=== PATIENT | male | born 1965 | race Caucasian/White ===

== ENCOUNTER 2024-06-26 05:55 | Day surgery (SDC) | payer OTHER ==
[2024-06-20 11:17] VITALS: BP 144/95
[~2024-06-26] VITALS: Ht 177.8 cm; Wt 159.1 kg
[~2024-06-26 05:55] MED LIST: LOSARTAN POTASS50 MG PO
[2024-06-26 06:04] VITALS: BP 123/64
[2024-06-26] MEDS ORDERED: ROSUVASTATIN CA20 MG PO (06:06)
[2024-06-26] MEDS ORDERED: LOSARTAN-HCTZ1 EAC2 PO (06:06)
[2024-06-26] MEDS ORDERED: LIDOCAINE HCL 1% 5 ML SDV INJ ONE (07:00)
[2024-06-26] MEDS ORDERED: IBLOOD GLUCOSE TEST STRIP 1 EA TEST VI PRN (07:00)
[2024-06-26] MEDS ORDERED: LACTATED RINGER'S 1,000 ML IV SCH (07:00)
[2024-06-26] MEDS ORDERED: LIDOCAINE HCL 2% 5 ML SDV ONE (07:15)
[2024-06-26] MEDS ORDERED: propofoL 200 MG/20 ML VIAL ONE ×2 (07:15→07:52)
[2024-06-26] MEDS ORDERED: fentaNYL citrate 100 MCG/2 ML VIAL ONE (07:42)
[2024-06-26] MEDS ORDERED: ePHEDrine sulfate 50 MG/ML AMP ONE (07:59)
[2024-06-26 09:05] VITALS: BP 129/74
--- NOTE | 2024-06-26 11:14 | OR ---
[facility] [address] [place], [place] [address] Signed DATE OF OPERATION: 06/26/2024 SURGEON: Aruna Joiner MD PREOPERATIVE DIAGNOSIS: Maternal grandfather with colon cancer in his 60s. POSTOPERATIVE DIAGNOSES: 1. 5 mm polyp at 7 cm in the rectum. 2. 4 mm polyps x3 at 8 cm in the rectum. 3. 4 mm polyp at 10 cm in the rectum. 4. 12 mm pedunculated polyp at 42 cm in left colon (clip, snare). 5. 4 mm polyp at 22 cm in sigmoid colon. 6. 6 mm polyp at 70 cm in the left colon. 7. 3 mm polyps x2 on ileocecal valve. 8. Large lobulated cecal mass (biopsy x2). 9. 6 mm polyp at distal hepatic flexure. 10. A large pedunculated mass at 85 cm in mid transverse colon (clip, tattoo). 11. 6 mm polyp at 26 cm in sigmoid colon (snare). 12. 7 mm pedunculated polyp at 23 cm in sigmoid colon (snare). 13. Minimal left-sided diverticulosis. PROCEDURE: Colonoscopy with snare polypectomy hot biopsy and application of clips x2. ESTIMATED BLOOD LOSS: Minimal. INDICATIONS: Malachi is a 59-year-old obese gentleman, asked to see me for his initial screening colonoscopy. He said he has no lower GI complaints. His maternal grandfather had colon cancer in his 60s. In the remote past, Dr. Garrett thought Malachi might have Crohn disease based on blood work and x-rays. He has never had a previous colonoscopy or upper endoscopy. In the office, I gave [facility] pamphlet on colonoscopy. We had reviewed the nature of the test. There is risk including, but not limited to gas bloating, crampy abdominal pain, bleeding, perforation requiring surgery, and missed diagnosis. We also reviewed the written instructions for the bowel prep line by line. He said he was up most of the night with a bowel prep. I think in the future he could start his bowel prep in the day and increase the polyethylene glycol from one-half gallon up to 3/4 or even one full gallon along with his Dulcolax tablets. He is a very Electronically Signed By: ARUNA JOINER MD 06/26/24 1114 PATIENT NAME: MALACHI TRIPATHI OPERATIVE REPORT DATE OF : 69 REPORT #: [id number] PHYSICIAN: ARUNA JOINER MD PCP: JENIFER ROJAS MD REPORT IS CONFIDENTIAL AND NOT TO BE RELEASED WITHOUT AUTHORIZATION [facility] [address] [place], [place] [address] Signed large man with a body mass index of 49 and he does smoke. He has very full heavy face, neck, chest and abdomen. Therefore, we asked for monitored anesthesia care with propofol infusion. That proved to be a pina decision as Malachi was frequently moving around and had to be redosed multiple times throughout the case. He understands an adult person has to take him home afterwards. He had expressed understanding wished to proceed. PROCEDURE IN DETAIL: Malachi was taken into the endoscopy suite and placed in the left lateral decubitus position. 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 A digital rectal exam was performed. He had no external hemorrhoids. He has good sphincter tone. There were no masses. He is a very large man I could barely touch the bottom of his prostate gland. It is becoming indurated. The adult colonoscope was introduced and advanced under direct visualization of the camera without difficulty. The above-mentioned polyps were removed mostly with the hot biopsy forceps. We did have to use the snare as indicated above. Overall, his prep was good. There were a couple areas of liquid stool, most of which I could suction out. We had finally made it to the cecum, he has a large multilobulated mass. There was no way that I can come out with snare without perforation. We took a couple biopsies on the edge of that area. We went back and he has a very large pedunculated mass at 85 cm, which we believe is in the mid transverse colon. We never could find a base of that mass. We went ahead and placed a tattoo x2 and placed a clip. We will go ahead and take an x-ray in our recovery room to help localize the mass. Although that is so large, it will on a CT scan. We took the biopsy of that mass, it clearly needs to come out surgically. We noticed that he does have some diverticula in his sigmoid colon. They are small in size, few in number and scattered about. Once in the rectum, the scope was retroflexed and he has no additional pathology noted above the anal canal. After this, the gas was suctioned out and the colonoscope removed. Overall, Malachi tolerated the procedure well. RECOMMENDATIONS: We will draw a CEA level here in our recovery room. He will have flat plate of his abdomen here in recovery room to look for the two clips. In due time, he needs a CT scan and then consideration of surgery. I will discuss this more in detail with Malachi in the office. He called for ride only. Aruna Joiner MD Electronically Signed By: ARUNA JOINRE MD 06/26/24 1114 PATIENT NAME: MALACHI TRIPATHI OPERATIVE REPORT DATE OF : 69 REPORT #: [id number] PHYSICIAN: ARUNA JOINER MD PCP: JENIFER ROJAS MD REPORT IS CONFIDENTIAL AND NOT TO BE RELEASED WITHOUT AUTHORIZATION [address] [place], [place] [address] Signed ALB/MODL /[id number] cc: JIM Carpio MD Copies: LEW JAY PA-C, ROBERT D DMD ~ Electronically Signed By: ARUNA JOINER MD 06/26/24 1114 PATIENT NAME: MALACHI TRIPATHI OPERATIVE REPORT DATE OF : 69 REPORT #: [id number] PHYSICIAN: ARUNA JOINER MD PCP: JENIFER ROJAS MD REPORT IS CONFIDENTIAL AND NOT TO BE RELEASED WITHOUT AUTHORIZATION
[2024-06-28 01:32] LABS: CARCINOEMBRYONIC ANTIGEN 1.3 ng/mL (<=3.8)
--- NOTE | 2024-07-03 13:08 | PATH ---
[facility] [address] [place], [place] [address] Signed SPECIMEN(S): A COLON POLYP AT 7 CM SPECIMEN(S): B COLON POLYP AT 8 CM SPECIMEN(S): C COLON POLYP AT 10 CM SPECIMEN(S): D COLON POLYP AT 22 CM SPECIMEN(S): E COLON POLYP AT 42 CM SPECIMEN(S): F COLON POLYP AT 70 CM SPECIMEN(S): G ILEOCECAL VALVE COLON POLYP SPECIMEN(S): H ILEOCECAL VALVE COLON BIOPSY SPECIMEN(S): I DISTAL HEPATIC FLEXURE COLON POLYP SPECIMEN(S): J COLON POLYP AT 26 CM SPECIMEN(S): K COLON POLYP AT 23 CM SPECIMEN SOURCE: A. COLON POLYP AT 7 CM B. COLON POLYP AT 8 CM C. COLON POLYP AT 10 CM D. COLON POLYP AT 22 CM E. COLON POLYP AT 42 CM F. COLON POLYP AT 70 CM G. ILEOCECAL VALVE COLON POLYP H. ILEOCECAL VALVE COLON BIOPSY I. DISTAL HEPATIC FLEXURE COLON POLYP J. COLON POLYP AT 26 CM K. COLON POLYP AT 23 CM [id number] CLINICAL HISTORY: Screening, potential Crohn's FINAL PATHOLOGIC DIAGNOSIS: A. Colon, polyp at 7 cm, biopsy: - Hyperplastic polyps (2 fragments). B. Colon, polyp at 8 cm, biopsy: - Hyperplastic polyps (3 fragments). - Colonic epithelium with a benign intramucosal lymphoid nodule, 1 fragment. C. Colon, polyp at 10 cm, biopsy: - No significant histopathology. - There is no evidence of neoplasia. D. Colon, polyp at 22 cm, biopsy: - Benign colonic mucosa with prominent intramucosal lymphoid aggregate. - There is no evidence of neoplasia. PATIENT NAME: VIRGIE TRIPATHI PATHOLOGY DATE OF : 69 REPORT #: [id number] PHYSICIAN: PETER PATHOLOGY PCP: JENIFER ROJAS MD REPORT IS CONFIDENTIAL AND NOT TO BE RELEASED WITHOUT AUTHORIZATION [facility] [address] [place], [place] [address] Signed E. Colon, polyp at 42 cm, biopsy: - Tubular adenoma. F. Colon, polyp at 70 cm, biopsy: - Hyperplastic polyp. G. Colon, ileocecal valve polyp, biopsy: - Benign colonic mucosa with prominent intramucosal lymphoid aggregates. - No evidence of neoplasia. H. Colon, ileocecal valve, biopsy: - Multiple fragments of tubular adenoma. I. Colon, distal hepatic flexure polyp, biopsy: - Tubular adenoma. J. Colon, polyp at 26 cm, biopsy: - Tubular adenoma. K. Colon, polyp at 23 cm, biopsy: - Hyperplastic polyp. COMMENT: A, B, F, K. There is no evidence of dysplasia or malignancy. C. The sections from the specimen are architecturally normal without crypt distortion. There is no acute or chronic inflammation. There are no abnormal infiltrates. There is no evidence of inflammatory, hyperplastic or adenomatous polyps. D. Sections of colonic tissue demonstrate a benign intramucosal lymphoid aggregate. Intramucosal lymphoid aggregates can sometimes appear as polyps endoscopically. They have no clinical significance. There is no evidence of dysplasia or malignancy. E, H, I, J. There is no evidence of high grade dysplasia or malignancy. G. Examination of sections from three different levels of the tissue block discloses the presence of benign intramucosal lymphoid aggregates. Intramucosal lymphoid aggregates can sometimes appear as polyps endoscopically. They have no clinical significance. There is no evidence of dysplasia or malignancy. K MICROSCOPIC EXAMINATION: Histologic sections of all submitted blocks are examined by light microscopy. These findings, together with the gross examination, support the pathologic diagnosis. GROSS DESCRIPTION: A. The specimen, labeled and designated "Sathya, colon polyp at 7 cm," is PATIENT NAME: VIRGIE TRIPATHI PATHOLOGY DATE OF : 69 REPORT #: [id number] PHYSICIAN: PETER ANTONY PCP: JENIFER ROJAS MD REPORT IS CONFIDENTIAL AND NOT TO BE RELEASED WITHOUT AUTHORIZATION [facility] [address] [place], [place] [address] Signed received in formalin and consists of 2 pieces of skinner-pink, soft tissue which measure 0.3 x 0.2 x 0.1 cm each. The specimen is filtered and submitted entirely in A1. Eosin is applied to the tissue prior to processing B. The specimen, labeled and designated "Sathya, colon polyp at 8 cm," is received in formalin and consists of 4 pieces of skinner-pink, soft tissue ranging from 0.2-0.4 cm in greatest dimension and aggregating 0.8 x 0.4 x 0.2 cm. The specimen is filtered and submitted entirely in B1. Eosin is applied to the tissue prior to processing C. The specimen, labeled and designated "Sathya, colon polyp at 10 cm," is received in formalin and consists of a 0.2 x 0.1 x 0.1 cm piece of skinner-pink, soft tissue. The specimen is filtered and submitted entirely in C1. Eosin is applied to the tissue prior to processing. D. The specimen, labeled and designated "Sathya, colon polyp at 22 cm," is received in formalin and consists of a 0.4 x 0.2 x 0.1 cm piece of skinner-pink, soft tissue. The specimen is filtered and submitted entirely in D1. E. The specimen, labeled and designated "[place], colon polyp at 42 cm," is received in formalin and consists of a 1.3 x 0.8 x 0.5 cm skinner-brown polyp with a discrete resection margin. The margin is inked in blue and the specimen is bisected. The specimen is submitted entirely in E1. F. The specimen, labeled and designated "Sathya, colon polyp at 70 cm," is received in formalin and consists of a 0.2 x 0.1 x 0.1 cm piece of skinner-pink, soft tissue. The specimen is filtered and submitted entirely in F1. Eosin is applied to the tissue prior to processing G. The specimen, labeled and designated "Sathya, ileocecal valve colon polyp," is received in formalin and consists of 4 pieces of skinner-pink, soft tissue ranging from 0.2-0.4 cm in greatest dimension, altogether aggregating 0.8 x 0.3 x 0.1 cm. The specimen is filtered and submitted entirely in G1. Eosin is applied to the tissue prior to processing. H. The specimen, labeled and designated "Sathya, ileocecal valve colon biopsy," is received in formalin and consists of 2 pieces of skinner-pink, soft tissue which measures 0.3 cm in greatest dimension each and aggregate 0.6 x 0.3 x 0.1 cm. The specimen is filtered and submitted entirely in H1. Eosin is applied to the tissue prior to processing. I. The specimen, labeled and designated "[place], distal hepatic flexure colon polyp," is received in formalin and consists of a 0.2 x 0.2 x 0.1 cm piece of skinner-pink, soft tissue. The specimen is filtered and submitted entirely in I1. Eosin is applied to the tissue prior to PATIENT NAME: VIRGIE TRIPATHI PATHOLOGY DATE OF : 69 REPORT #: [id number] PHYSICIAN: PETER PATHOLOGY PCP: JENIFER ROJAS MD REPORT IS CONFIDENTIAL AND NOT TO BE RELEASED WITHOUT AUTHORIZATION [facility] [address] [place], [place] [address] Signed processing. J. The specimen, labeled and designated "Sathya, colon polyp at 26 cm," is received in formalin and consists of is 0.7 x 0.5 x 0.4 cm skinner-red polyp. The specimen is inked at the margin and blue and bisected. The specimen is submitted entirely in J1. K. The specimen, labeled and designated "[place], colon polyp at 23 cm," is received in formalin and consists of a 1.7 x 1.0 x 0.7 cm, skinner-brown polyp with an attached stalk. The base of the stalk is inked in blue and the polyp is bisected. The specimen submitted entirely in K1. AM (under the direct supervision of a pathologist) The Gross Description was prepared using a voice recognition system. The report was reviewed for accuracy; however, sound-alike word errors, addition and/or deletions may occur. If there is any question about this report, please contact Client Services. ADDITIONAL NOTES: Immunohistochemical and/or in situ hybridization studies if performed in this case included appropriate positive controls that reacted as expected. This test was developed and its performance characteristics determined by [facility]. It has not been cleared or approved by the U.S. Food and Drug Administration. The FDA has determined that such clearance or approval is not necessary. This test is used for clinical purposes. It should not be regarded as investigational or for research. [facility] is certified under the Clinical Laboratory Improvement Amendments of 1988 (CLIA) as qualified to perform high complexity clinical laboratory testing. PERFORMING LABORATORY: Technical component was performed by [facility], [address] [place] [id number] (CLIA# [id number]). Professional interpretation was performed by [facility], [address] [place] [address] (CLIA#:[id number]). Diagnostician: Kevin Gunn MD Pathologist Electronically Signed 07/03/2024 Copies: PATIENT NAME: VIRGIE TRIPATHI PATHOLOGY DATE OF : 69 REPORT #: [id number] PHYSICIAN: PETER PATHOLOGY PCP: JENIFER ROJAS MD REPORT IS CONFIDENTIAL AND NOT TO BE RELEASED WITHOUT AUTHORIZATION [facility] [address] [place], [place] [address] Signed ~ PATIENT NAME: VIRGIE TRIPATHI PATHOLOGY DATE OF : 69 REPORT #: [id number] PHYSICIAN: PETER PATHOLOGY PCP: JENIFER ROJAS MD REPORT IS CONFIDENTIAL AND NOT TO BE RELEASED WITHOUT AUTHORIZATION
== END 2024-06-26 09:18 | disposition home or self-care (01) ==
LOC: DS 05:55
PROVIDERS: ATTEND Colon & Rectal Surgery
PROC: 0DBL8ZZ Excision of Transverse Colon, Via Natural or Artificial Opening Endoscopic (ICD-10-PCS; 2024-06-26)
PROC: 0DBN8ZZ Excision of Sigmoid Colon, Via Natural or Artificial Opening Endoscopic (ICD-10-PCS; 2024-06-26)
PROC: 0DBP8ZZ Excision of Rectum, Via Natural or Artificial Opening Endoscopic (ICD-10-PCS; 2024-06-26)
PROC: 0DBG8ZZ Excision of Left Large Intestine, Via Natural or Artificial Opening Endoscopic (ICD-10-PCS; 2024-06-26)
PROC: 3E0H8KZ Introduction of Other Diagnostic Substance into Lower GI, Via Natural or Artificial Opening Endoscopic (ICD-10-PCS; 2024-06-26)
PROC: 0DBC8ZZ Excision of Ileocecal Valve, Via Natural or Artificial Opening Endoscopic (ICD-10-PCS; principal; 2024-06-26 07:30)
DX: Z12.11 Encounter for screening for malignant neoplasm of colon (principal); D12.3 Benign neoplasm of transverse colon; D12.5 Benign neoplasm of sigmoid colon; D12.0 Benign neoplasm of cecum; K63.5 Polyp of colon; K62.1 Rectal polyp; K57.30 Diverticulosis of large intestine without perforation or abscess without bleeding; I10 Essential (primary) hypertension; E78.5 Hyperlipidemia, unspecified; F17.210 Nicotine dependence, cigarettes, uncomplicated; E66.01 Morbid (severe) obesity due to excess calories; Z68.42 Body mass index [BMI] 45.0-49.9, adult; Z79.899 Other long term (current) drug therapy; Z91.030 Bee allergy status; Z91.040 Latex allergy status; Z80.0 Family history of malignant neoplasm of digestive organs
CPT/HCPCS: 00811; 36415; 74018; 82378; J2003; J2704; J3010; J7121

== ENCOUNTER 2024-10-24 02:11 | Emergency (ER) | payer OTHER ==
[~2024-10-24] VITALS: Ht 177.8 cm; Wt 150.0 kg
[~2024-10-24 02:11] MED LIST changes: +LOSARTAN-HCTZ1 EAC2 PO; +ROSUVASTATIN CA20 MG PO
[2024-10-24] MEDS ORDERED: MORPHINE SULFATE 4 MG/ML VIAL IV ONE (02:45)
[2024-10-24] MEDS ORDERED: ondansetron HCL 4 MG/2 ML VIAL IV ONE (02:45)
[2024-10-24 02:56] LABS: BASOPHILS 1.8 % (0-2); EOSINOPHILS 4.3 % (0-6); HEMOGLOBIN 17.1 g/dL (12.0-18.0); LYMPHOCYTES 22.9 % (24-44); MCH 36.1 (27-36); MCHC 34.8 g/dl (30-36); MCV 103.6 fl (81-99); MONOCYTES 11.1 % (0-12); NEUTROPHILS 59.9 % (39-80); PLATELET COUNT 238 K/uL (140-440); RBC 4.73 M/ul (4.3-5.7); RDW 14.8 (10.5-15.0)
[2024-10-24 03:08] LABS: ALBUMIN 3.3 g/dL (3.4-5.0); ALBUMIN/GLOBULIN RATIO 0.85 (1.1-2.4); ANION GAP 18.4 (7-21); BILIRUBIN, TOTAL 0.4 mg/dL (0.2-1.0); BUN/CREATININE RATIO 8.87 (6.0-28.6); CALCIUM 8.8 mg/dL (8.5-10.1); CREATININE, SERUM 1.24 mg/dL (0.70-1.30); POTASSIUM 3.4 mmol/L (3.5-5.1); PROTEIN, TOTAL 7.2 g/dL (6.4-8.2)
[2024-10-24] MEDS ORDERED: KETOROLAC TROMETHAMINE 30 MG/ML VIAL IV ONE (03:30)
[2024-10-24] MEDS ORDERED: HYDROmorphone HCL 1 MG/ML SYR IV PRN (03:30)
[2024-10-24] MEDS ORDERED: HYDROCODON-ACE1 EA10 PO (03:51)
[2024-10-24] MEDS ORDERED: COLACE100 MG PO (03:51)
[2024-10-24] MEDS ORDERED: ONDANSETRON 4 MG HOME.PACK SL ONE (04:00)
[2024-10-24] MEDS ORDERED: OXYCODONE/ACETAMINOPHEN 1 TAB HOME.PACK PO ONE (04:00)
[2024-10-24] MEDS ORDERED: HYDROCODONE BIT/ACETAMINOPHEN 5/325 MG 1 TAB HOME.PACK PO ONE (04:00)
[2024-10-24 04:30] VITALS: BP 143/79
== END 2024-10-24 04:30 | disposition home or self-care (01) ==
LOC: ED 02:11
PROVIDERS: Family Medicine
DX: G89.18 Other acute postprocedural pain (principal); R10.31 Right lower quadrant pain; E78.00 Pure hypercholesterolemia, unspecified; I10 Essential (primary) hypertension; Z91.030 Bee allergy status; Z91.040 Latex allergy status
CPT/HCPCS: 36415; 74177; 80053; 85025; 96375; 99284-25; A9270; J1171; J1885; J2270; J2405; Q9967